=== PATIENT | female | born 1985 | race American Indian/Alaskan Native ===

== ENCOUNTER 2017-01-06 09:05 | Emergency (ER) | payer SELFPAY ==
[2017-01-06 09:20] VITALS: BP 98/54
[2017-01-06] MEDS ORDERED: LIDOCAINE VISCOUS 2% PO ONE (09:48)
--- NOTE | 2017-01-06 10:06 | Emergency Department Report ---
ED ENT HPI - General Chief complaint: Sore Throat Stated complaint: SORE THROAT Time Seen by Provider: 01/06/17 09:21 Source: patient Mode of arrival: Ambulatory Limitations: No Limitations - History of Present Illness Initial comments: This is a 31-year-old male nontoxic, well nourished in appearance, no acute signs of distress presents to the ED c/o of sore throat x1 week. Patient describes sore throat as swallowing razer blades. Patient denies any hoarseness , chest pain, shortness of breathe, fever, chills, headache, numbness, tingling. Patient denies any allergies or PMH. MD complaint: sore throat -: Gradual, week(s) Location: throat Severity: mild Severity scale (0 -10): 8 Consistency: constant Improves with: none Worsens with: none Associated Symptoms: pain with swallowing, sore throat. denies: fever, cough, gum swelling, toothache, tinnitus, hearing loss, discharge from ear, rhinorrhea - Related Data Previous Rx's Medication Instructions Recorded Last Taken Type Albendazole (Nf) [Albenza (Nf)] 400 mg PO ONCE #1 tablet 01/28/15 Unknown Rx Amoxicillin 500 mg PO BID #20 capsule 01/06/17 Unknown Rx Nystas/Diphen/Xyl Visc/Mylanta 15 ml MM DAILY 10 Days 01/06/17 Unknown Rx [Magic Mouthwash] Allergies Allergy/AdvReac Type Severity Reaction Status Date / Time No Known Allergies Allergy Unverified 01/28/15 09:28 ED Dental HPI - General Chief complaint: Sore Throat Stated complaint: SORE THROAT Time Seen by Provider: 01/06/17 09:21 Source: patient Mode of arrival: Ambulatory Limitations: No Limitations - Related Data Previous Rx's Medication Instructions Recorded Last Taken Type Albendazole (Nf) [Albenza (Nf)] 400 mg PO ONCE #1 tablet 01/28/15 Unknown Rx Amoxicillin 500 mg PO BID #20 capsule 01/06/17 Unknown Rx Nystas/Diphen/Xyl Visc/Mylanta 15 ml MM DAILY 10 Days 01/06/17 Unknown Rx [Magic Mouthwash] Allergies Allergy/AdvReac Type Severity Reaction Status Date / Time No Known Allergies Allergy Unverified 01/28/15 09:28 ED Review of Systems ROS: Stated complaint: SORE THROAT Other details as noted in HPI Constitutional: denies: chills, fever Eyes: denies: eye pain, eye discharge, vision change ENT: throat pain. denies: ear pain Respiratory: denies: cough, shortness of breath, wheezing Cardiovascular: denies: chest pain, palpitations Endocrine: no symptoms reported Gastrointestinal: denies: abdominal pain, nausea, diarrhea Genitourinary: denies: urgency, dysuria, discharge Musculoskeletal: denies: back pain, joint swelling, arthralgia Skin: denies: rash, lesions Neurological: denies: headache, weakness, paresthesias Psychiatric: denies: anxiety, depression Hematological/Lymphatic: denies: easy bleeding, easy bruising ED Past Medical Hx - Past Medical History Previous Medical History?: No - Surgical History Past Surgical History?: No - Social History Smoking Status: Current Every Day Smoker Substance Use Type: Alcohol - Medications Home Medications: Home Medications Medication Instructions Recorded Confirmed Last Taken Type Albendazole (Nf) [Albenza (Nf)] 400 mg PO ONCE #1 tablet 01/28/15 Unknown Rx Amoxicillin 500 mg PO BID #20 capsule 01/06/17 Unknown Rx Nystas/Diphen/Xyl Visc/Mylanta 15 ml MM DAILY 10 Days 01/06/17 Unknown Rx [Magic Mouthwash] ED Physical Exam - General Limitations: No Limitations General appearance: alert, in no apparent distress - Head Head exam: Present: atraumatic, normocephalic - Eye Eye exam: Present: normal appearance - ENT ENT exam: Present: mucous membranes moist, TM's normal bilaterally, normal external ear exam - Expanded ENT Exam Expanded Mouth exam: Present: normal external inspection, tongue normal. Absent: drooling, trismus, muffled voice, tongue elevation, laceration Teeth exam: Present: normal inspection Throat exam: Positive: tonsillar erythema, tonsillomegaly (2+), tonsillar exudate, other (Uvula midline. No abscess or swelling noted. ). Negative: R peritonsillar mass, L peritonsillar mass - Neck Neck exam: Present: normal inspection, full ROM. Absent: tenderness, meningismus, lymphadenopathy, thyromegaly - Respiratory Respiratory exam: Present: normal lung sounds bilaterally. Absent: respiratory distress, wheezes, rales, rhonchi, stridor, chest wall tenderness, accessory muscle use, decreased breath sounds, prolonged expiratory - Cardiovascular Cardiovascular Exam: Present: regular rate, normal rhythm, normal heart sounds. Absent: bradycardia, tachycardia, irregular rhythm, systolic murmur, diastolic murmur, rubs, gallop - GI/Abdominal GI/Abdominal exam: Present: soft, normal bowel sounds. Absent: distended, tenderness, guarding, rebound, rigid, diminished bowel sounds - Rectal Rectal exam: Present: deferred - Extremities Exam Extremities exam: Present: normal inspection, full ROM, normal capillary refill. Absent: tenderness, pedal edema, joint swelling, calf tenderness - Back Exam Back exam: Present: normal inspection, full ROM. Absent: tenderness, CVA tenderness (R), CVA tenderness (L), muscle spasm, paraspinal tenderness, vertebral tenderness, rash noted - Neurological Exam Neurological exam: Present: alert, oriented X3, CN II-XII intact, normal gait, reflexes normal - Psychiatric Psychiatric exam: Present: normal affect, normal mood - Skin Skin exam: Present: warm, dry, intact, normal color. Absent: rash ED Course Vital Signs 01/06/17 09:16 Temperature 98.4 F Pulse Rate 74 Respiratory 19 Rate Blood Pressure 98/54 O2 Sat by Pulse 97 Oximetry - Reevaluation(s) Reevaluation #1: 01/06/17 10:10 Patient is speaking in full sentences with no signs of distress noted. Reevaluation #2: 01/06/17 10:10 Patient stated symptoms of sore throat has resolved after medical treatment in the ED Critical care attestation.: If time is entered above; I have spent that time in minutes in the direct care of this critically ill patient, excluding procedure time. ED Disposition Clinical Impression: Tonsillitis with exudate Disposition: DC-01 TO HOME OR SELFCARE Is pt being admited?: No Does the pt Need Aspirin: No Condition: Stable Instructions: Tonsillitis (ED), Amoxicillin (By mouth) Additional Instructions: Follow-up with a primary care doctor in 3-5 days or if symptoms worsen and continue return to the Emergency room as soon as possible. Prescriptions: Amoxicillin 500 mg PO BID #20 capsule Nystas/Diphen/Xyl Visc/Mylanta [Magic Mouthwash] 15 ml MM DAILY 10 Days Referrals: PRIMARY CAREMD [Primary Care Provider] - 3-5 Days ARGENIS LIZARRAGA MD [Staff Physician] - 3-5 Days [facility] [Outside] - 3-5 Days [facility] [Outside] - 3-5 Days Forms: Work/School Release Form(ED)
== END 2017-01-06 10:26 | disposition home or self-care (01) ==
LOC: ED 09:05
DX: J03.90 Acute tonsillitis, unspecified (principal); F17.210 Nicotine dependence, cigarettes, uncomplicated
CPT/HCPCS: 99282